=== PATIENT | male | born 2005 | race Caucasian/White ===

== ENCOUNTER 2025-05-27 14:41 | Emergency (ER) | payer OTHER, SELFPAY ==
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
[2025-05-27 14:52] VITALS: BP 119/80; PULSE 65; RESP 16; TEMP 37; O2SAT 100
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
== END 2025-05-27 15:55 | disposition home or self-care (01) ==
PROVIDERS: Emergency Provider Nurse Practitioner Family
DX: S92.151A Displaced avulsion fracture (chip fracture) of right talus, initial encounter for closed fracture (principal); V86.09XA Driver of other special all-terrain or other off-road motor vehicle injured in traffic accident, initial encounter
CPT/HCPCS: 29515; 73610; 99204; G0463